=== PATIENT | female | born 1935 | race Asian ===

== ENCOUNTER 2017-01-15 22:06 | Inpatient (IN) | payer MEDICARE, BC ==
[~2017-01-15] VITALS: Ht 149.9 cm; Wt 58.5 kg
[~2017-01-15 22:06] MED LIST: ACET325T14 PO; ALBU18HF INH; ALBU8.5H5 INH; AMLO10TA2 PO; APIX2.5T PO; ASPI-496 PO; ASPI325T17 PO; ATEN50TA41 PO; BENZ100C17 PO; CEFD300C37 PO; CIPR500T87 PO; CLON0.1T PO; CYCL-259 PO; DOCU-131 PO; DOXY100T PO; ESTR0.5T PO; FAMO20TA7 PO; FAMO40TA4 PO; FERR325T18 PO; FLUT10SP NS; FLUT16SP NAS; FURO20TA3 PO; HUM INSULIN NPH SQ-INSULIN; HUM100VI INJ; HUM100VI SC; INSU100I11 SQ-INSULIN; INSU100I18 SQ-INSULIN; INSU100I28 SQ-INSULIN; INSU100V11 SC; INSU200I SC; INSULIN SQ; LACT1CAP35 PO; LOSA100T6 PO; LOSA50TA2 PO; LOSA50TA6 PO; MAGN400T26 PO; MAGN400T36 PO; METO50TA82 PO; POTA20PA25 PO; PRAV10TA2 PO; REG INSULIN SQ-INSULIN; SPIR25TA3 PO; [UNRECOGNIZED DRUG - OTHER] PO; [UNRECOGNIZED DRUG - OTHER] PO; magnesium PO; probiotic PO
[2017-01-15] MEDS ORDERED: SODIUM CHLORIDE FLUSH 10ML SYR IVF ONE ×2 (22:30→23:00)
[2017-01-15] MEDS ORDERED: PLEASE ENTER HEIGHT AND WEIGHT MC SCH (22:30)
[2017-01-15] MEDS ORDERED: SODIUM CHLORIDE 0.9% 1,000ML IVBOLUS ONE ×2 (22:30→23:00)
[2017-01-15 22:37] LABS: HEMATOCRIT 45.5 % (34.6-47.8); HEMOGLOBIN 15.4 g/dL (11.7-16.4); WHITE BLOOD COUNT 12.6 x10^3/uL (3.4-10)
[2017-01-15] MEDS ORDERED: LORazepam 2 MG/ML, 1ML ONE (22:38)
[2017-01-15 22:50] LABS: BLOOD UREA NITROGEN 43 mg/dL (7-18)
[2017-01-15 22:58] LABS: ASPARTATE AMINO TRANSFERASE 37 U/L (15-37); IS PT STATUS REG ER OR PRE ER? YES
[2017-01-15] MEDS ORDERED: LORazepam 2 MG/ML, 1ML IVPush ONE ×2 (23:00)
[2017-01-15] MEDS ORDERED: LEVETIRACETAM 1,000 MG in SODIUM CHLORIDE 0.9% 100 ML IV ONE (23:00)
[2017-01-15] MEDS ORDERED: OMNIPAQUE 350 MG/ML, 100ML BOTTLE ONE (23:32)
[2017-01-16 02:00] VITALS: BP 175/72
[2017-01-16] MEDS ORDERED: SODIUM CHLORIDE 0.9% 1,000 ML IV SCH (03:59)
[2017-01-16] MEDS ORDERED: DEXTROSE 50%, 50ML SYRINGE IVPush PRN (04:00)
[2017-01-16] MEDS: LEVETIRACETAM 500 MG in SODIUM CHLORIDE 0.9% 100 ML IV SCH ×2 (04:00→16:20)
[2017-01-16] MEDS ORDERED: INSULIN DETEMIR 100 UNITS/ML, PEN SQ-INSULIN SCH (04:00)
[2017-01-16] MEDS ORDERED: DEXTROSE 4 GM TAB.CHEW PO PRN (04:00)
[2017-01-16] MEDS ORDERED: PROMETHAZINE 25 MG/ML, 1ML IM PRN (04:00)
[2017-01-16] MEDS ORDERED: DO NOT GIVE XX PRN (04:00)
[2017-01-16] MEDS ORDERED: HEPARIN wt. based STROKE protocol IV PRN (04:00)
[2017-01-16] MEDS ORDERED: GLUCAGON 1 MG IM PRN (04:00)
[2017-01-16 05:25] LABS: HEMATOCRIT 38.5 % (34.6-47.8); HEMOGLOBIN 13.1 g/dL (11.7-16.4); WHITE BLOOD COUNT 20.1 x10^3/uL (3.4-10)
[2017-01-16] MEDS ORDERED: IPRATROPIUM 0.5 MG/2.5 ML INHA NPPB PRN (05:30)
[2017-01-16 05:42] LABS: ASPARTATE AMINO TRANSFERASE 19 U/L (15-37); BLOOD UREA NITROGEN 42 mg/dL (7-18)
[2017-01-16] MEDS: HEPARIN 25,000 UNITS/500ML PMX 500 ML IV PRN (05:51)
[2017-01-16] MEDS ORDERED: METOPROLOL TARTRATE 50 MG TABLET PO SCH (06:00)
[2017-01-16] MEDS ORDERED: INSULIN ASPART 100 UNITS/ML, PEN SQ-INSULIN SCH ×2 (07:00→11:00)
[2017-01-16 08:00] VITALS: BP 157/56
[2017-01-16] MEDS ORDERED: POTASSIUM CHLORIDE 20 MEQ PACKET PO SCH (08:00)
[2017-01-16] MEDS: SODIUM CHLORIDE FLUSH 10ML SYR IVF SCH ×2 (08:32→21:00)
[2017-01-16] MEDS ORDERED: LOSARTAN 50MG TABLET PO SCH (09:00)
[2017-01-16] MEDS ORDERED: FUROSEMIDE 20 MG TABLET PO SCH (09:00)
[2017-01-16] MEDS ORDERED: APIXABAN 2.5 MG TABLET PO SCH (09:00)
[2017-01-16] MEDS ORDERED: ALBUTEROL SULFATE 2.5 MG/3 ML NPPB PRN (10:00)
[2017-01-16] MEDS: INSULIN ASPART 100 UNITS/ML, PEN SQ-INSULIN SCH ×6 (10:05→23:00)
[2017-01-16] MEDS: D5%-0.9% NACL 1,000 ML IV SCH (10:05)
[2017-01-16] MEDS: LORazepam 2 MG/ML, 1ML IVPush PRN ×2 (13:06→19:46)
[2017-01-16] MEDS: INSULIN DETEMIR 100 UNITS/ML, PEN SQ-INSULIN SCH (16:20)
[2017-01-16 16:39] VITALS: BP 161/70
[2017-01-16 19:42] VITALS: BP 189/72
[2017-01-16] MEDS ORDERED: PRAVASTATIN 20 MG TABLET PO SCH (21:00)
[2017-01-17 00:23] VITALS: BP 166/74
[2017-01-17] MEDS: INSULIN ASPART 100 UNITS/ML, PEN SQ-INSULIN SCH ×6 (03:00→22:51)
[2017-01-17] MEDS: LEVETIRACETAM 500 MG in SODIUM CHLORIDE 0.9% 100 ML IV SCH ×2 (03:23→16:36)
[2017-01-17] MEDS: INSULIN DETEMIR 100 UNITS/ML, PEN SQ-INSULIN SCH ×2 (03:38→17:00)
[2017-01-17] MEDS: D5%-0.9% NACL 1,000 ML IV SCH (05:08)
[2017-01-17 05:47] LABS: BLOOD UREA NITROGEN 32 mg/dL (7-18)
[2017-01-17 05:53] LABS: HEMATOCRIT 35.6 % (34.6-47.8); HEMOGLOBIN 12.1 g/dL (11.7-16.4); WHITE BLOOD COUNT 8.6 x10^3/uL (3.4-10)
[2017-01-17] MEDS: HEPARIN 25,000 UNITS/500ML PMX 500 ML IV PRN (06:23)
[2017-01-17 06:54] VITALS: BP 180/68
[2017-01-17] MEDS: hydrALAzine 20 MG/ML, 1ML IVPush PRN ×2 (08:39→17:51)
[2017-01-17] MEDS: SODIUM CHLORIDE FLUSH 10ML SYR IVF SCH ×2 (08:40→20:11)
[2017-01-17 09:37] VITALS: BP 151/64
[2017-01-17 17:30] VITALS: BP 240/73
[2017-01-17 18:30] VITALS: BP_SYST 183; BP_SYST 185; BP_DIAS 78
[2017-01-17] MEDS: ONDANSETRON 2MG/ML, 2ML IVPush PRN (18:45)
[2017-01-17] MEDS: ACETAMINOPHEN 325 MG TABLET PO PRN (18:45)
[2017-01-17] MEDS: LORazepam 2 MG/ML, 1ML IVPush PRN ×2 (19:02→22:47)
[2017-01-17] MEDS: LOSARTAN 50MG TABLET PO SCH (20:11)
[2017-01-17] MEDS: METOPROLOL TARTRATE 50 MG TABLET PO SCH (20:11)
[2017-01-17 20:42] VITALS: BP 153/63
[2017-01-18] MEDS: INSULIN ASPART 100 UNITS/ML, PEN SQ-INSULIN SCH ×5 (02:48→21:18)
[2017-01-18] MEDS: LEVETIRACETAM 500 MG in SODIUM CHLORIDE 0.9% 100 ML IV SCH (03:47)
[2017-01-18 03:57] VITALS: BP 148/57
[2017-01-18] MEDS: INSULIN DETEMIR 100 UNITS/ML, PEN SQ-INSULIN SCH ×2 (04:00→21:17)
[2017-01-18 06:02] LABS: BLOOD UREA NITROGEN 25 mg/dL (7-18)
[2017-01-18] MEDS: HEPARIN 25,000 UNITS/500ML PMX 500 ML IV PRN (06:31)
[2017-01-18 07:00] VITALS: BP 161/63
[2017-01-18] MEDS: METOPROLOL TARTRATE 50 MG TABLET PO SCH ×2 (08:34→18:37)
[2017-01-18] MEDS: LOSARTAN 50MG TABLET PO SCH (08:34)
[2017-01-18] MEDS: SODIUM CHLORIDE FLUSH 10ML SYR IVF SCH ×2 (08:37→21:18)
[2017-01-18 14:50] VITALS: BP 143/66
[2017-01-18 17:58] LABS: PATH.CAST-FLAG NOT PRESENT; SPERM-FLAG NOT PRESENT; SRC-FLAG NOT PRESENT; XTAL-FLAG NOT PRESENT; YLC-FLAG NOT PRESENT
[2017-01-18 19:53] VITALS: BP 160/65
[2017-01-18] MEDS: LEVETIRACETAM 500 MG TABLET PO SCH (21:16)
[2017-01-18] MEDS: APIXABAN 2.5 MG TABLET PO SCH (21:16)
[2017-01-19 02:00] VITALS: BP 149/64
[2017-01-19] MEDS ORDERED: INSULIN DETEMIR 100 UNITS/ML, PEN SQ-INSULIN SCH (04:00)
[2017-01-19 05:58] VITALS: BP 156/66
[2017-01-19] MEDS: METOPROLOL TARTRATE 50 MG TABLET PO SCH ×2 (05:59→17:05)
[2017-01-19 07:49] VITALS: BP 122/62
[2017-01-19] MEDS: SODIUM CHLORIDE FLUSH 10ML SYR IVF SCH ×2 (09:00→20:44)
[2017-01-19] MEDS: INSULIN ASPART 100 UNITS/ML, PEN SQ-INSULIN SCH ×4 (09:10→20:45)
[2017-01-19] MEDS: INSULIN DETEMIR 100 UNITS/ML, PEN SQ-INSULIN SCH ×2 (09:10→20:45)
[2017-01-19] MEDS: LOSARTAN 50MG TABLET PO SCH (09:11)
[2017-01-19] MEDS: LEVETIRACETAM 500 MG TABLET PO SCH ×2 (09:11→20:45)
[2017-01-19] MEDS: APIXABAN 2.5 MG TABLET PO SCH ×2 (09:11→20:45)
[2017-01-19] MEDS: CEFTRIAXONE PMX 1GM/50ML 50 ML IV SCH (11:47)
[2017-01-19 13:43] VITALS: BP 178/77
[2017-01-19 20:00] VITALS: BP 188/74
[2017-01-19] MEDS: hydrALAzine 20 MG/ML, 1ML IVPush PRN (20:44)
[2017-01-19] MEDS ORDERED: AMLO5TAB2 PO (20:59)
[2017-01-19] MEDS ORDERED: CEPH-375 PO (20:59)
[2017-01-20 02:00] VITALS: BP 156/55
[2017-01-20 05:51] LABS: HEMATOCRIT 34.9 % (34.6-47.8); HEMOGLOBIN 11.9 g/dL (11.7-16.4); WHITE BLOOD COUNT 9.8 x10^3/uL (3.4-10)
[2017-01-20 05:55] LABS: BLOOD UREA NITROGEN 30 mg/dL (7-18)
[2017-01-20] MEDS: METOPROLOL TARTRATE 50 MG TABLET PO SCH ×2 (06:10→18:15)
[2017-01-20] MEDS: INSULIN ASPART 100 UNITS/ML, PEN SQ-INSULIN SCH ×4 (07:31→20:49)
[2017-01-20 08:12] VITALS: BP 163/77
[2017-01-20] MEDS: SODIUM CHLORIDE FLUSH 10ML SYR IVF SCH ×2 (08:44→20:48)
[2017-01-20] MEDS: APIXABAN 2.5 MG TABLET PO SCH ×2 (08:44→20:48)
[2017-01-20] MEDS: LOSARTAN 50MG TABLET PO SCH (08:45)
[2017-01-20] MEDS: LEVETIRACETAM 500 MG TABLET PO SCH ×2 (08:45→20:48)
[2017-01-20] MEDS: INSULIN DETEMIR 100 UNITS/ML, PEN SQ-INSULIN SCH ×2 (08:46→20:50)
[2017-01-20] MEDS: CEFTRIAXONE PMX 1GM/50ML 50 ML IV SCH (10:34)
[2017-01-20 14:00] VITALS: BP 175/75
[2017-01-20 19:18] VITALS: BP 178/81
[2017-01-20] MEDS: hydrALAzine 20 MG/ML, 1ML IVPush PRN (20:48)
[2017-01-20] MEDS: ACETAMINOPHEN 325 MG TABLET PO PRN (23:18)
[2017-01-21 02:00] VITALS: BP 195/69
[2017-01-21 05:26] VITALS: BP 184/70
[2017-01-21] MEDS: hydrALAzine 20 MG/ML, 1ML IVPush PRN (05:28)
[2017-01-21] MEDS: METOPROLOL TARTRATE 50 MG TABLET PO SCH ×2 (05:29→17:00)
[2017-01-21] MEDS ORDERED: SODIUM CHLORIDE 0.9% 1,000 ML IV SCH (07:00)
[2017-01-21] MEDS: INSULIN ASPART 100 UNITS/ML, PEN SQ-INSULIN SCH ×4 (07:00→20:53)
[2017-01-21] MEDS: ONDANSETRON 2MG/ML, 2ML IVPush PRN (07:37)
[2017-01-21 08:10] VITALS: BP 146/78
[2017-01-21] MEDS ORDERED: SODIUM CHLORIDE 0.9% 500 ML IV SCH (08:30)
[2017-01-21] MEDS: APIXABAN 2.5 MG TABLET PO SCH ×2 (10:27→20:51)
[2017-01-21] MEDS: LOSARTAN 50MG TABLET PO SCH (10:27)
[2017-01-21] MEDS: CEFTRIAXONE PMX 1GM/50ML 50 ML IV SCH (10:27)
[2017-01-21] MEDS: LEVETIRACETAM 500 MG TABLET PO SCH ×2 (10:28→20:51)
[2017-01-21] MEDS: INSULIN DETEMIR 100 UNITS/ML, PEN SQ-INSULIN SCH ×2 (10:28→20:53)
[2017-01-21 14:00] VITALS: BP 161/76
[2017-01-21 18:59] VITALS: BP 173/74
[2017-01-21] MEDS: FUROSEMIDE 20 MG/2 ML IV SCH (20:51)
[2017-01-21 22:03] VITALS: BP 166/51
[2017-01-22 02:33] VITALS: BP 187/63
[2017-01-22] MEDS: hydrALAzine 20 MG/ML, 1ML IVPush PRN (03:05)
[2017-01-22 03:41] VITALS: BP 168/62
[2017-01-22] MEDS: METOPROLOL TARTRATE 50 MG TABLET PO SCH (06:14)
[2017-01-22 06:29] LABS: BLOOD UREA NITROGEN 28 mg/dL (7-18)
[2017-01-22] MEDS: INSULIN ASPART 100 UNITS/ML, PEN SQ-INSULIN SCH ×2 (07:00→12:18)
[2017-01-22 08:00] VITALS: BP 170/79
[2017-01-22] MEDS ORDERED: LEVOFLOXACIN 250 MG TABLET PO SCH (09:00)
[2017-01-22] MEDS: LEVETIRACETAM 500 MG TABLET PO SCH (09:46)
[2017-01-22] MEDS: APIXABAN 2.5 MG TABLET PO SCH (09:46)
[2017-01-22] MEDS: FUROSEMIDE 20 MG/2 ML IV SCH (09:47)
[2017-01-22] MEDS: INSULIN DETEMIR 100 UNITS/ML, PEN SQ-INSULIN SCH (09:48)
[2017-01-22] MEDS: LOSARTAN 50MG TABLET PO SCH (09:49)
[2017-01-22] MEDS ORDERED: AMLODIPINE 5 MG TABLET PO SCH (10:00)
[2017-01-22] MEDS ORDERED: INSU100I18 SQ-INSULIN (14:50)
[2017-01-22] MEDS ORDERED: INSU100I28 SQ-INSULIN (14:50)
[2017-01-22] MEDS ORDERED: AMLO5TAB2 PO (14:50)
[2017-01-22] MEDS ORDERED: LOSA50TA2 PO (14:50)
[2017-01-22] MEDS ORDERED: LEVE500T53 PO (14:50)
[2017-01-22] MEDS ORDERED: METO50TA82 PO (14:50)
[2017-01-22] MEDS ORDERED: LEVO250T23 PO (14:50)
== END 2017-01-22 16:10 | DRG 100 ==
LOC: ED 22:29 → EDIP 01-16 02:28 → 4WST 01-16 02:41
PROVIDERS: ADMIT Internal Medicine; ATTEND Hospitalist
PROC: 0T9B70Z Drainage of Bladder with Drainage Device, Via Natural or Artificial Opening (ICD-10-PCS; principal; 2017-01-18)
DX: G40.901 Epilepsy, unspecified, not intractable, with status epilepticus (principal); G93.41 Metabolic encephalopathy; I50.33 Acute on chronic diastolic (congestive) heart failure; N18.4 Chronic kidney disease, stage 4 (severe); D68.69 Other thrombophilia; E11.22 Type 2 diabetes mellitus with diabetic chronic kidney disease; N17.9 Acute kidney failure, unspecified; E11.40 Type 2 diabetes mellitus with diabetic neuropathy, unspecified; E11.65 Type 2 diabetes mellitus with hyperglycemia; N39.0 Urinary tract infection, site not specified; I13.0 Hypertensive heart and chronic kidney disease with heart failure and stage 1 through stage 4 chronic kidney disease, or unspecified chronic kidney disease; I48.2 Chronic atrial fibrillation; D72.829 Elevated white blood cell count, unspecified; I25.10 Atherosclerotic heart disease of native coronary artery without angina pectoris; I34.0 Nonrheumatic mitral (valve) insufficiency; E78.5 Hyperlipidemia, unspecified; K21.9 Gastro-esophageal reflux disease without esophagitis; Z66 Do not resuscitate; R33.9 Retention of urine, unspecified; R09.02 Hypoxemia; E87.70 Fluid overload, unspecified; Z90.49 Acquired absence of other specified parts of digestive tract; Z95.0 Presence of cardiac pacemaker; Z86.73 Personal history of transient ischemic attack (TIA), and cerebral infarction without residual deficits; Z79.4 Long term (current) use of insulin; Z85.038 Personal history of other malignant neoplasm of large intestine; Z90.710 Acquired absence of both cervix and uterus; Z88.2 Allergy status to sulfonamides
CPT/HCPCS: 36415; 70450; 70496; 70498; 71010; 80047; 80048; 80053; 80307; 81001; 82040; 82962; 83735; 84100; 84484; 85025; 85520; 85610; 85730; 87040; 87077; 87086; 87186; 93005; 93306; 94640; 95819; 96361; 96374; 96375; J0696; J1644; J1953; J2405; J7042; J7613; Q9967; 92523-GN; G0479; J0360; J1815; J1940; J2060; J7030; J7040

== ENCOUNTER 2017-06-03 02:23 | Inpatient (IN) | payer MEDICARE, BC ==
[~2017-06-03] VITALS: Ht 144.8 cm; Wt 54.6 kg
[~2017-06-03 02:23] MED LIST changes: +AMLO5TAB2 PO; +BENZ-17 PO; -BENZ100C17 PO; +CEPH-375 PO; +LEVE500T53 PO; +LEVO250T23 PO
[2017-06-03] MEDS ORDERED: SODIUM CHLORIDE 0.9% 1,000 ML IV ONE (02:29)
[2017-06-03] MEDS ORDERED: SODIUM CHLORIDE FLUSH 10ML SYR IVF ONE (02:30)
[2017-06-03] MEDS ORDERED: methylPREDNISolone SOD SUCC 125 MG/2 ML IVP ONE (02:30)
[2017-06-03] MEDS ORDERED: ALBUTEROL/IPRATROPIUM 2.5MG/0.5MG, 3 ML NPPB ONE (02:30)
[2017-06-03] MEDS ORDERED: ALBUTEROL/IPRATROPIUM 2.5MG/0.5MG, 3 ML ONE (02:48)
[2017-06-03] MEDS ORDERED: AMAN100C7 PO (02:55)
[2017-06-03] MEDS ORDERED: AMLO10TA2 PO (02:55)
[2017-06-03] MEDS ORDERED: LOSA50TA6 PO (02:55)
[2017-06-03] MEDS ORDERED: PRAV10TA2 PO (02:55)
[2017-06-03] MEDS ORDERED: APIX2.5T PO (02:55)
[2017-06-03] MEDS ORDERED: METO-99 PO (02:55)
[2017-06-03] MEDS ORDERED: INSU100I11 SQ ×2 (02:55→02:56)
[2017-06-03] MEDS ORDERED: CEFU250T66 PO (02:55)
[2017-06-03] MEDS ORDERED: FAMO20TA7 PO (02:55)
[2017-06-03] MEDS ORDERED: POTA20TA89 PO (02:55)
[2017-06-03] MEDS ORDERED: TERA2CAP3 PO (02:55)
[2017-06-03] MEDS ORDERED: FURO20TA3 PO (02:55)
[2017-06-03 03:16] LABS: BASOPHILS # (AUTO) 0.03 x10^3/uL (0-0.1); BASOPHILS % (AUTO) 0 % (0-1); EOSINOPHILS % (AUTO) 1 % (1-7); LYMPHOCYTES # (AUTO) 1.43 x10^3/uL (1-3.4); LYMPHOCYTES % (AUTO) 21 % (22-44); MD NO; MEAN CORPUSCULAR HEMOGLOBIN 31.9 pg (27.0-34.8); MEAN CORPUSCULAR HGB CONC 34.4 g/dL (32.4-35.8); MEAN CORPUSCULAR VOLUME 92.8 fL (80-100); MEAN PLATELET VOLUME 8.3 fL (7.4-10.4); MONOCYTES # (AUTO) 0.67 x10^3/uL (0.2-0.8); MONOCYTES % (AUTO) 10 % (2-9); NEUTROPHILS % (AUTO) 67 % (42-75); PLATELET COUNT 207 x10^3/uL (130-400); RED BLOOD COUNT 3.78 x10^6/uL (3.82-5.3); RED CELL DISTRIBUTION WIDTH 13.8 % (9.6-15.2)
[2017-06-03 03:26] LABS: ALANINE AMINOTRANSFERASE 34 U/L (12-78); ALBUMIN 2.4 g/dL (3.4-5.0); ANION GAP 11 mmol/L (5-15); CALCIUM 7.8 mg/dL (8.5-10.1); CHLORIDE 109 mmol/L (98-107); CREATININE 2.03 mg/dL (0.55-1.02)
[2017-06-03 03:31] LABS: ALKALINE PHOSPHATASE 71 U/L (45-117); BILIRUBIN,TOTAL 0.3 mg/dL (0.2-1.0); TOTAL PROTEIN 6.2 g/dL (6.4-8.2); TROPONIN I < 0.015 ng/mL (0.000-0.045)
[2017-06-03] MEDS ORDERED: FUROSEMIDE 40 MG/4 ML ONE (03:40)
[2017-06-03] MEDS ORDERED: methylPREDNISolone SOD SUCC 125 MG/2 ML ONE (03:40)
[2017-06-03] MEDS ORDERED: FUROSEMIDE 40 MG/4 ML IV ONE (04:00)
[2017-06-03] MEDS ORDERED: ONDANSETRON 2MG/ML, 2ML IVPush PRN (05:00)
[2017-06-03] MEDS ORDERED: ACETAMINOPHEN 325 MG TABLET PO PRN (05:00)
[2017-06-03] MEDS ORDERED: hydrALAzine 20 MG/ML, 1ML IVPush PRN (05:00)
[2017-06-03 06:28] VITALS: BP 156/70
[2017-06-03] MEDS ORDERED: INSULIN LISPRO 100 UNITS/ML, PEN SQ-INSULIN SCH ×2 (07:30→16:30)
[2017-06-03] MEDS: APIXABAN MC SCH ×2 (08:05→11:02)
[2017-06-03] MEDS: HEPARIN MC SCH ×2 (08:05→11:02)
[2017-06-03] MEDS ORDERED: HEPARIN 5,000 UNITS/ML, 1ML SQ SCH (09:00)
[2017-06-03] MEDS ORDERED: FAMOTIDINE 20 MG TABLET PO SCH (09:00)
[2017-06-03] MEDS: LEVETIRACETAM 500 MG TABLET PO SCH ×2 (09:55→21:00)
[2017-06-03] MEDS: AMLODIPINE 5 MG TABLET PO SCH (09:55)
[2017-06-03] MEDS: POLYETHYLENE GLYCOL 17 GM PACKET PO SCH ×2 (09:56→10:00)
[2017-06-03] MEDS: METOPROLOL TARTRATE 100 MG TABLET PO SCH ×2 (09:56→21:57)
[2017-06-03] MEDS: APIXABAN 2.5 MG TABLET PO SCH ×2 (09:56→21:57)
[2017-06-03] MEDS: POTASSIUM CHLORIDE 20 MEQ TAB.ER.PRT PO SCH (09:56)
[2017-06-03] MEDS: AMANTADINE 100 MG CAPSULE PO SCH (09:57)
[2017-06-03] MEDS: SODIUM CHLORIDE FLUSH 10ML SYR IVF SCH ×2 (09:57→21:52)
[2017-06-03] MEDS: FUROSEMIDE 40 MG/4 ML IV SCH (09:57)
[2017-06-03] MEDS: LOSARTAN 50MG TABLET PO SCH ×2 (09:58→10:02)
[2017-06-03 10:09] VITALS: BP 138/69
[2017-06-03] MEDS ORDERED: INSULIN GLARGINE 100 UNITS/ML, PEN SQ-INSULIN SCH (12:00)
[2017-06-03] MEDS: INSULIN LISPRO 100 UNITS/ML, PEN SQ-INSULIN SCH ×3 (12:19→21:58)
[2017-06-03 14:32] VITALS: BP 130/71
[2017-06-03] MEDS ORDERED: INSULIN LISPRO 100 UNITS/ML, PEN SQ-INSULIN ONE (15:00)
[2017-06-03 15:49] LABS: TROPONIN I < 0.015 ng/mL (0.000-0.045)
[2017-06-03 17:45] LABS: MICROSCOPIC INDICATED
[2017-06-03 20:22] VITALS: BP 137/64
[2017-06-03] MEDS: SIMVASTATIN 5 MG TABLET PO SCH (21:00)
[2017-06-03] MEDS ORDERED: SIMVASTATIN 10 MG TABLET ONE (21:18)
[2017-06-03] MEDS: CEFUROXIME 250 MG TABLET PO SCH (21:54)
[2017-06-03] MEDS: TERAZOSIN 2MG CAPSULE PO SCH (21:57)
[2017-06-04 01:44] VITALS: BP 133/62
[2017-06-04 05:30] LABS: BASOPHILS # (AUTO) 0.01 x10^3/uL (0-0.1); BASOPHILS % (AUTO) 0 % (0-1); EOSINOPHILS % (AUTO) 0 % (1-7); LYMPHOCYTES # (AUTO) 0.56 x10^3/uL (1-3.4); LYMPHOCYTES % (AUTO) 7 % (22-44); MD NO; MEAN CORPUSCULAR HEMOGLOBIN 31.3 pg (27.0-34.8); MEAN CORPUSCULAR HGB CONC 33.5 g/dL (32.4-35.8); MEAN CORPUSCULAR VOLUME 93.3 fL (80-100); MONOCYTES # (AUTO) 0.64 x10^3/uL (0.2-0.8); MONOCYTES % (AUTO) 8 % (2-9); NEUTROPHILS # (AUTO) 6.89 x10^3/uL (1.8-6.8); NEUTROPHILS % (AUTO) 85 % (42-75); PLATELET COUNT 219 x10^3/uL (130-400); RED BLOOD COUNT 3.77 x10^6/uL (3.82-5.3); RED CELL DISTRIBUTION WIDTH 13.9 % (9.6-15.2)
[2017-06-04 05:42] LABS: ANION GAP 11 mmol/L (5-15); CALCIUM 8.4 mg/dL (8.5-10.1); CHLORIDE 107 mmol/L (98-107)
[2017-06-04 05:47] LABS: CHOL/HDL RATIO 2.9; CHOLESTEROL, TOTAL 237 mg/dL (140-239); CREATININE 2.77 mg/dL (0.55-1.02); HDL CHOL % 35 % (28-40); HDL CHOLESTEROL (DIRECT) 83 mg/dL (40-60); LDL CHOLESTEROL,CALCULATED 97 mg/dL (54-169); LDL/HDL RATIO 1.2 (0.5-3.0); TRIGLYCERIDES 287 mg/dL (50-200); VLDL CHOLESTEROL 57 mg/dL (0-25)
[2017-06-04 07:29] VITALS: BP 138/61
[2017-06-04 08:02] VITALS: BP 140/73
[2017-06-04] MEDS: FAMOTIDINE 20 MG TABLET PO SCH (08:03)
[2017-06-04] MEDS: FUROSEMIDE 40 MG/4 ML IV SCH (08:03)
[2017-06-04] MEDS: POTASSIUM CHLORIDE 20 MEQ TAB.ER.PRT PO SCH (08:03)
[2017-06-04] MEDS: INSULIN LISPRO 100 UNITS/ML, PEN SQ-INSULIN SCH ×4 (08:03→21:09)
[2017-06-04] MEDS: AMLODIPINE 5 MG TABLET PO SCH (08:04)
[2017-06-04] MEDS: APIXABAN 2.5 MG TABLET PO SCH ×2 (08:04→21:02)
[2017-06-04] MEDS: LEVETIRACETAM 500 MG TABLET PO SCH (08:04)
[2017-06-04] MEDS: METOPROLOL TARTRATE 100 MG TABLET PO SCH ×2 (08:04→21:03)
[2017-06-04] MEDS: SODIUM CHLORIDE FLUSH 10ML SYR IVF SCH ×2 (08:04→21:02)
[2017-06-04] MEDS: POLYETHYLENE GLYCOL 17 GM PACKET PO SCH (08:05)
[2017-06-04] MEDS: AMANTADINE 100 MG CAPSULE PO SCH (08:05)
[2017-06-04] MEDS ORDERED: INSULIN GLARGINE 100 UNITS/ML, PEN SQ-INSULIN SCH (08:30)
[2017-06-04 08:46] LABS: HEMOGLOBIN A1C 8.8 % (4.2-6.3)
[2017-06-04] MEDS: ALBUTEROL SULFATE 2.5 MG/3 ML NPPB PRN ×2 (10:01→22:45)
[2017-06-04] MEDS ORDERED: CLON0.1T PO (12:51)
[2017-06-04] MEDS ORDERED: PRAV10TA2 PO (12:51)
[2017-06-04] MEDS ORDERED: LEVE250T28 PO (12:51)
[2017-06-04] MEDS ORDERED: SODI325T PO (12:51)
[2017-06-04] MEDS ORDERED: INSU100C SQ-INSULIN (12:53)
[2017-06-04] MEDS ORDERED: HUM100IN4 SC ×2 (12:53)
[2017-06-04 13:10] VITALS: BP 128/61
[2017-06-04] MEDS: INSULIN HUMULIN 70/30, 3ML PEN SQ-INSULIN SCH (17:34)
[2017-06-04 20:30] VITALS: BP 127/57
[2017-06-04] MEDS ORDERED: SIMVASTATIN 10 MG TABLET ONE (20:57)
[2017-06-04] MEDS: SIMVASTATIN 5 MG TABLET PO SCH (21:00)
[2017-06-04] MEDS: CEFUROXIME 250 MG TABLET PO SCH (21:02)
[2017-06-04] MEDS: TERAZOSIN 2MG CAPSULE PO SCH (21:19)
[2017-06-05 01:28] VITALS: BP 132/67
[2017-06-05 05:49] LABS: BASOPHILS # (AUTO) 0.02 x10^3/uL (0-0.1); BASOPHILS % (AUTO) 0 % (0-1); EOSINOPHILS # (AUTO) 0.08 x10^3/uL (0-0.4); EOSINOPHILS % (AUTO) 1 % (1-7); LYMPHOCYTES # (AUTO) 1.17 x10^3/uL (1-3.4); LYMPHOCYTES % (AUTO) 17 % (22-44); MD NO; MEAN CORPUSCULAR HEMOGLOBIN 31.8 pg (27.0-34.8); MEAN CORPUSCULAR HGB CONC 34.5 g/dL (32.4-35.8); MEAN CORPUSCULAR VOLUME 92.2 fL (80-100); MEAN PLATELET VOLUME 8.7 fL (7.4-10.4); MONOCYTES # (AUTO) 0.72 x10^3/uL (0.2-0.8); MONOCYTES % (AUTO) 10 % (2-9); NEUTROPHILS # (AUTO) 5.03 x10^3/uL (1.8-6.8); NEUTROPHILS % (AUTO) 72 % (42-75); PLATELET COUNT 204 x10^3/uL (130-400); RED BLOOD COUNT 3.57 x10^6/uL (3.82-5.3); RED CELL DISTRIBUTION WIDTH 13.5 % (9.6-15.2)
[2017-06-05 05:51] LABS: ANION GAP 8 mmol/L (5-15); CALCIUM 8.7 mg/dL (8.5-10.1); CHLORIDE 111 mmol/L (98-107)
[2017-06-05 05:55] LABS: CREATININE 2.02 mg/dL (0.55-1.02)
[2017-06-05 06:04] LABS: CREATININE,URINE RANDOM 68.5 mg/dL
[2017-06-05] MEDS: INSULIN LISPRO 100 UNITS/ML, PEN SQ-INSULIN SCH ×4 (07:00→20:50)
[2017-06-05] MEDS: INSULIN HUMULIN 70/30, 3ML PEN SQ-INSULIN SCH ×2 (07:30→16:30)
[2017-06-05 08:09] VITALS: BP 136/70
[2017-06-05] MEDS ORDERED: LACTULOSE 10 GM/15 ML UDC PO PRN (09:00)
[2017-06-05] MEDS ORDERED: BISACODYL 10 MG SUPP PR PRN (09:00)
[2017-06-05] MEDS: POTASSIUM CHLORIDE 20 MEQ TAB.ER.PRT PO SCH (09:43)
[2017-06-05] MEDS: FAMOTIDINE 20 MG TABLET PO SCH (09:44)
[2017-06-05] MEDS: APIXABAN 2.5 MG TABLET PO SCH ×2 (09:44→20:49)
[2017-06-05] MEDS: AMANTADINE 100 MG CAPSULE PO SCH (09:44)
[2017-06-05] MEDS: AMLODIPINE 5 MG TABLET PO SCH (09:44)
[2017-06-05] MEDS: METOPROLOL TARTRATE 100 MG TABLET PO SCH ×2 (09:44→20:50)
[2017-06-05] MEDS: POLYETHYLENE GLYCOL 17 GM PACKET PO SCH (09:45)
[2017-06-05] MEDS: SODIUM CHLORIDE FLUSH 10ML SYR IVF SCH ×2 (09:45→20:49)
[2017-06-05] MEDS: FUROSEMIDE 20 MG TABLET PO SCH (10:54)
[2017-06-05 13:05] VITALS: BP 135/77
[2017-06-05 18:36] VITALS: BP 134/70
[2017-06-05] MEDS ORDERED: SIMVASTATIN 10 MG TABLET ONE (20:43)
[2017-06-05] MEDS: CEFUROXIME 250 MG TABLET PO SCH (20:49)
[2017-06-05] MEDS: TERAZOSIN 2MG CAPSULE PO SCH (20:49)
[2017-06-05] MEDS: SIMVASTATIN 5 MG TABLET PO SCH (20:50)
[2017-06-06 02:22] VITALS: BP 134/70
[2017-06-06 05:26] LABS: ANION GAP 7 mmol/L (5-15); CALCIUM 8.8 mg/dL (8.5-10.1); CHLORIDE 109 mmol/L (98-107); CREATININE 1.81 mg/dL (0.55-1.02)
[2017-06-06 05:30] LABS: BASOPHILS # (AUTO) 0.02 x10^3/uL (0-0.1); BASOPHILS % (AUTO) 0 % (0-1); EOSINOPHILS # (AUTO) 0.15 x10^3/uL (0-0.4); EOSINOPHILS % (AUTO) 3 % (1-7); LYMPHOCYTES # (AUTO) 1.65 x10^3/uL (1-3.4); LYMPHOCYTES % (AUTO) 32 % (22-44); MD NO; MEAN CORPUSCULAR HEMOGLOBIN 31.2 pg (27.0-34.8); MEAN CORPUSCULAR HGB CONC 33.9 g/dL (32.4-35.8); MEAN CORPUSCULAR VOLUME 92.2 fL (80-100); MEAN PLATELET VOLUME 8.6 fL (7.4-10.4); MONOCYTES # (AUTO) 0.68 x10^3/uL (0.2-0.8); MONOCYTES % (AUTO) 13 % (2-9); NEUTROPHILS % (AUTO) 51 % (42-75); PLATELET COUNT 224 x10^3/uL (130-400); RED BLOOD COUNT 3.97 x10^6/uL (3.82-5.3); RED CELL DISTRIBUTION WIDTH 13.8 % (9.6-15.2)
[2017-06-06] MEDS: INSULIN LISPRO 100 UNITS/ML, PEN SQ-INSULIN SCH ×4 (07:00→20:22)
[2017-06-06] MEDS: INSULIN HUMULIN 70/30, 3ML PEN SQ-INSULIN SCH ×2 (07:30→16:30)
[2017-06-06 07:58] VITALS: BP 144/80
[2017-06-06] MEDS: POLYETHYLENE GLYCOL 17 GM PACKET PO SCH (09:42)
[2017-06-06] MEDS: POTASSIUM CHLORIDE 20 MEQ TAB.ER.PRT PO SCH (09:42)
[2017-06-06] MEDS: FUROSEMIDE 20 MG TABLET PO SCH (09:43)
[2017-06-06] MEDS: SODIUM CHLORIDE FLUSH 10ML SYR IVF SCH ×2 (09:43→20:23)
[2017-06-06] MEDS: APIXABAN 2.5 MG TABLET PO SCH ×2 (09:43→20:22)
[2017-06-06] MEDS: AMANTADINE 100 MG CAPSULE PO SCH (09:43)
[2017-06-06] MEDS: METOPROLOL TARTRATE 100 MG TABLET PO SCH ×2 (09:43→20:23)
[2017-06-06] MEDS: AMLODIPINE 5 MG TABLET PO SCH (09:43)
[2017-06-06 13:15] VITALS: BP 130/79
[2017-06-06 18:25] VITALS: BP 132/80
[2017-06-06] MEDS ORDERED: SIMVASTATIN 10 MG TABLET ONE (20:17)
[2017-06-06] MEDS: SIMVASTATIN 5 MG TABLET PO SCH (20:22)
[2017-06-06] MEDS: CEFUROXIME 250 MG TABLET PO SCH (20:23)
[2017-06-06] MEDS: TERAZOSIN 2MG CAPSULE PO SCH (20:23)
[2017-06-07 00:34] VITALS: BP 148/79
[2017-06-07 05:14] LABS: BASOPHILS # (AUTO) 0.02 x10^3/uL (0-0.1); BASOPHILS % (AUTO) 0 % (0-1); EOSINOPHILS # (AUTO) 0.14 x10^3/uL (0-0.4); EOSINOPHILS % (AUTO) 3 % (1-7); LYMPHOCYTES # (AUTO) 1.65 x10^3/uL (1-3.4); LYMPHOCYTES % (AUTO) 32 % (22-44); MD NO; MEAN CORPUSCULAR HEMOGLOBIN 31.2 pg (27.0-34.8); MEAN CORPUSCULAR HGB CONC 33.9 g/dL (32.4-35.8); MEAN CORPUSCULAR VOLUME 91.9 fL (80-100); MEAN PLATELET VOLUME 8.3 fL (7.4-10.4); MONOCYTES # (AUTO) 0.62 x10^3/uL (0.2-0.8); MONOCYTES % (AUTO) 12 % (2-9); NEUTROPHILS % (AUTO) 53 % (42-75); PLATELET COUNT 218 x10^3/uL (130-400); RED BLOOD COUNT 3.81 x10^6/uL (3.82-5.3); RED CELL DISTRIBUTION WIDTH 13.4 % (9.6-15.2)
[2017-06-07 05:22] LABS: ALBUMIN 2.1 g/dL (3.4-5.0); ANION GAP 8 mmol/L (5-15); CALCIUM 8.5 mg/dL (8.5-10.1); CHLORIDE 107 mmol/L (98-107); CREATININE 1.69 mg/dL (0.55-1.02)
[2017-06-07] MEDS: INSULIN HUMULIN 70/30, 3ML PEN SQ-INSULIN SCH ×2 (07:41→16:58)
[2017-06-07] MEDS: METOPROLOL TARTRATE 100 MG TABLET PO SCH ×2 (07:43→22:22)
[2017-06-07] MEDS: FUROSEMIDE 20 MG TABLET PO SCH (07:43)
[2017-06-07] MEDS: POTASSIUM CHLORIDE 20 MEQ TAB.ER.PRT PO SCH (07:43)
[2017-06-07] MEDS: AMLODIPINE 5 MG TABLET PO SCH (07:43)
[2017-06-07] MEDS: INSULIN LISPRO 100 UNITS/ML, PEN SQ-INSULIN SCH ×4 (07:43→22:46)
[2017-06-07] MEDS: AMANTADINE 100 MG CAPSULE PO SCH (07:43)
[2017-06-07] MEDS: SODIUM CHLORIDE FLUSH 10ML SYR IVF SCH ×2 (07:44→22:21)
[2017-06-07] MEDS: APIXABAN 2.5 MG TABLET PO SCH ×2 (07:44→22:21)
[2017-06-07] MEDS: POLYETHYLENE GLYCOL 17 GM PACKET PO SCH (07:44)
[2017-06-07 07:48] VITALS: BP 136/74
[2017-06-07 13:14] VITALS: BP 119/83
[2017-06-07 18:55] VITALS: BP 148/76
[2017-06-07] MEDS: CEFUROXIME 250 MG TABLET PO SCH (22:21)
[2017-06-07] MEDS: SIMVASTATIN 5 MG TABLET PO SCH (22:21)
[2017-06-07] MEDS: TERAZOSIN 2MG CAPSULE PO SCH (22:22)
[2017-06-08 01:13] VITALS: BP 147/81
[2017-06-08 06:45] VITALS: BP 146/72
[2017-06-08] MEDS: INSULIN HUMULIN 70/30, 3ML PEN SQ-INSULIN SCH (07:16)
[2017-06-08] MEDS: INSULIN LISPRO 100 UNITS/ML, PEN SQ-INSULIN SCH ×2 (07:54→11:39)
[2017-06-08] MEDS: POTASSIUM CHLORIDE 20 MEQ TAB.ER.PRT PO SCH (07:55)
[2017-06-08] MEDS: APIXABAN 2.5 MG TABLET PO SCH (07:56)
[2017-06-08] MEDS: FUROSEMIDE 20 MG TABLET PO SCH (07:56)
[2017-06-08] MEDS: METOPROLOL TARTRATE 100 MG TABLET PO SCH (07:56)
[2017-06-08] MEDS: AMLODIPINE 5 MG TABLET PO SCH (07:57)
[2017-06-08] MEDS: POLYETHYLENE GLYCOL 17 GM PACKET PO SCH (07:57)
[2017-06-08] MEDS: AMANTADINE 100 MG CAPSULE PO SCH (07:57)
[2017-06-08] MEDS: SODIUM CHLORIDE FLUSH 10ML SYR IVF SCH (07:58)
[2017-06-08] MEDS ORDERED: POTA10CA PO (10:52)
== END 2017-06-08 12:30 | disposition home or self-care (01) | DRG 682 ==
LOC: ED 04:06 → EDIP 04:44 → MERGE 04:44 → 5SO 06:40
PROVIDERS: ADMIT Hospitalist; ATTEND Hospitalist
DX: N17.9 Acute kidney failure, unspecified (principal); I50.41 Acute combined systolic (congestive) and diastolic (congestive) heart failure; E43 Unspecified severe protein-calorie malnutrition; D68.69 Other thrombophilia; E11.22 Type 2 diabetes mellitus with diabetic chronic kidney disease; E11.65 Type 2 diabetes mellitus with hyperglycemia; I48.2 Chronic atrial fibrillation; I13.0 Hypertensive heart and chronic kidney disease with heart failure and stage 1 through stage 4 chronic kidney disease, or unspecified chronic kidney disease; G30.1 Alzheimer's disease with late onset; F02.80 Dementia in other diseases classified elsewhere, unspecified severity, without behavioral disturbance, psychotic disturbance, mood disturbance, and anxiety; Z88.2 Allergy status to sulfonamides; Z88.8 Allergy status to other drugs, medicaments and biological substances; Z68.26 Body mass index [BMI] 26.0-26.9, adult; E78.5 Hyperlipidemia, unspecified; G40.909 Epilepsy, unspecified, not intractable, without status epilepticus; J45.909 Unspecified asthma, uncomplicated; N18.3 Chronic kidney disease, stage 3 (moderate); Z79.01 Long term (current) use of anticoagulants; Z79.4 Long term (current) use of insulin; Z85.038 Personal history of other malignant neoplasm of large intestine; Z86.73 Personal history of transient ischemic attack (TIA), and cerebral infarction without residual deficits; Z95.0 Presence of cardiac pacemaker
CPT/HCPCS: 36415; 71045; 80048; 80053; 80061; 81001; 82040; 82436; 82550; 82570; 82962; 83036; 83735; 83880; 83935; 84100; 84133; 84300; 84484; 85025; 87040; 87205; 93005; 93306; 94640; 96374; 96375; J1940; J7613; J7620; J1815; J2930